=== PATIENT | female | born 1950 | race Caucasian/White ===

== ENCOUNTER 2017-05-13 05:43 | Day surgery (SDC) | payer OTHER ==
[~2017-05-13 05:43] MED LIST: HYOSCYAMINE0.125 M1 SL; PERCOCET 5/3251 TAB PO; SYNTHROID50 MCG; Synthroid PO; ULTRACET PO
== END 2017-05-13 12:00 | disposition home or self-care (01) ==
LOC: AMB-ENDOS 05:43
DX: K62.4 Stenosis of anus and rectum (principal); K64.1 Second degree hemorrhoids

== ENCOUNTER 2019-09-23 22:24 | Emergency (ER) | payer OTHER ==
[~2019-09-23] VITALS: Ht 149.9 cm; Wt 72.6 kg
[2019-09-23] MEDS ORDERED: LEVOTHYROXINE25 MCG (22:50)
[2019-09-23] MEDS ORDERED: COZAAR50 MG (22:51)
== END 2019-09-24 18:27 | disposition home or self-care (01) ==
LOC: ER 22:24
DX: K57.30 Diverticulosis of large intestine without perforation or abscess without bleeding (principal); R10.32 Left lower quadrant pain

== ENCOUNTER → 2019-10-26 08:00 | Outpatient (CLI) | payer OTHER ==
[~2019-10-26 08:00] MED LIST changes: +COZAAR50 MG; +LEVOTHYROXINE25 MCG
== END | disposition home or self-care (01) ==
LOC: LAB 08:00 → ADM 13:00 → EDSTATUS 11-02 13:00 → AMB-ENDOS 11-02 13:00
PROVIDERS: ATTEND Colon & Rectal Surgery
DX: K57.30 Diverticulosis of large intestine without perforation or abscess without bleeding (principal); Z20.828 Contact with and (suspected) exposure to other viral communicable diseases; K62.4 Stenosis of anus and rectum; K92.1 Melena

== ENCOUNTER 2019-12-28 11:11 | Day surgery (SDC) | payer OTHER | END 2019-12-28 14:50 | disposition home or self-care (01) | LOC: AMB-ENDOS 11:11 | PROVIDERS: ATTEND Colon & Rectal Surgery | DX: K62.4 Stenosis of anus and rectum (principal); K64.1 Second degree hemorrhoids; Z20.828 Contact with and (suspected) exposure to other viral communicable diseases ==

== ENCOUNTER 2022-03-10 03:55 | Emergency (ER) | payer OTHER ==
[~2022-03-10] VITALS: Ht 152.4 cm; Wt 72.6 kg
== END 2022-03-10 12:22 | disposition home or self-care (01) ==
LOC: ER 03:55
DX: K57.30 Diverticulosis of large intestine without perforation or abscess without bleeding (principal); K63.89 Other specified diseases of intestine; K76.89 Other specified diseases of liver

== ENCOUNTER 2022-03-10 19:17 | Inpatient (IN) | payer OTHER ==
[~2022-03-10] VITALS: Ht 165.1 cm; Wt 72.6 kg
--- NOTE | 2022-03-10 19:49 | NUR ---
SE RECIBE PACIENTE ALERTA Y ORIENTADA X3 QUIEN REFIERE QUE FUE ATENDIDA POR ER EN EL SUNDAY DE HOY POR DOLOR ABD Y VOMITOS, INDICA QUE LUEGO QUE FUE HAYLEY DE ALESSANDRA AUN CONTINUA CON EL DOLOR Y LOS VOMITOS (2 ANTES DE LLEGAR) SE MONITOREAN S/V Y SE UBICA PACIENTE
--- NOTE | 2022-03-10 21:20 | NUR ---
PTE ALERTA Y ORIENTADA X3. SE REALIZAN MUESTRAS DE [facility] Y BAJO MEDIDAS ASEPTICAS. SE CANALIZA USANDO ANGIO 18 EN [place], [place] Y ENROJECIMIENTO. SE ADMINISTRA MEDICAMENTO [facility].
== END 2022-03-14 16:12 | disposition home or self-care (01) | DRG 390 ==
LOC: ER 19:17 → SEC-K 21:20 → SURG 21:20 → SURH 03-11 02:36 → SURG 03-11 02:39
PROVIDERS: ADMIT Colon & Rectal Surgery; ATTEND Colon & Rectal Surgery
DX: K56.600 Partial intestinal obstruction, unspecified as to cause (principal); I10 Essential (primary) hypertension; Z20.822 Contact with and (suspected) exposure to COVID-19

== ENCOUNTER 2022-03-25 18:36 | Inpatient (IN) | payer OTHER ==
[~2022-03-25] VITALS: Ht 152.4 cm; Wt 73.0 kg
--- NOTE | 2022-03-25 19:07 | NUR ---
PACIENTE FEMINA DE 71 ANOS ALERTA Y ORIENTADA X 3 ACOMPANADA POR HECTOR REFIERE DOLOR PELVICO DESDE HOY.
--- NOTE | 2022-03-25 20:01 | NUR ---
FEMINA ALERTA Y ORIENTADA X3 EVALUADA POR DR BETTY [facility] [place] [facility]. SE EDUCA A PTE Y REFIERE ENTENDER. SE COLECTAN MUESTRAS DE DANN BAJO MEDIDAS ASEPTICAS Y SE ADMINISTRAN MEDICAMENTOS [facility].
== END 2022-03-27 14:19 | disposition home or self-care (01) | DRG 392 ==
LOC: ER 18:36 → SEC-K 03-26 00:02 → SURG 03-26 00:02
PROVIDERS: ADMIT Colon & Rectal Surgery; ATTEND Colon & Rectal Surgery
PROC: BW21ZZZ Computerized Tomography (CT Scan) of Abdomen and Pelvis (ICD-10-PCS; principal; 2022-03-25)
DX: K52.89 Other specified noninfective gastroenteritis and colitis (principal); K91.3 Postprocedural intestinal obstruction; K57.90 Diverticulosis of intestine, part unspecified, without perforation or abscess without bleeding; Z20.822 Contact with and (suspected) exposure to COVID-19

== ENCOUNTER 2022-06-09 19:07 | Inpatient (IN) | payer OTHER ==
[~2022-06-09] VITALS: Ht 152.4 cm; Wt 63.5 kg
[2022-06-14] MEDS ORDERED: ESOMEPRAZOLE MA40 MG (10:24)
[2022-06-14] MEDS ORDERED: FENOFIBRIC ACI135 MG (10:24)
[2022-06-14] MEDS ORDERED: ATORVASTATIN CA20 MG (10:24)
[2022-06-17] MEDS ORDERED: LEVOTHYROXINE25 MCG PO (13:40)
[2022-06-17] MEDS ORDERED: FAMOTIDINE20 MG PO (13:40)
[2022-06-17] MEDS ORDERED: COZAAR25 MG PO (13:40)
[2022-06-17] MEDS ORDERED: POLY119PG PO (13:40)
[2022-06-17] MEDS ORDERED: INTESTINEX680 M1 PO (13:40)
== END 2022-06-17 18:13 | disposition home or self-care (01) | DRG 394 ==
LOC: ER 19:07 → SURG 06-10 15:05
PROVIDERS: ADMIT Internal Medicine Geriatric Medicine; ATTEND Internal Medicine Geriatric Medicine
PROC: BW21ZZZ Computerized Tomography (CT Scan) of Abdomen and Pelvis (ICD-10-PCS; 2022-06-09)
PROC: 02HV33Z Insertion of Infusion Device into Superior Vena Cava, Percutaneous Approach (ICD-10-PCS; 2022-06-11)
PROC: 3E0436Z Introduction of Nutritional Substance into Central Vein, Percutaneous Approach (ICD-10-PCS; 2022-06-11)
PROC: BW40ZZZ Ultrasonography of Abdomen (ICD-10-PCS; 2022-06-15)
PROC: 0D7E8ZZ Dilation of Large Intestine, Via Natural or Artificial Opening Endoscopic (ICD-10-PCS; principal; 2022-06-16)
DX: K91.89 Other postprocedural complications and disorders of digestive system (principal); K56.600 Partial intestinal obstruction, unspecified as to cause; K52.9 Noninfective gastroenteritis and colitis, unspecified; K57.30 Diverticulosis of large intestine without perforation or abscess without bleeding; K76.0 Fatty (change of) liver, not elsewhere classified; K76.89 Other specified diseases of liver; I10 Essential (primary) hypertension; E03.9 Hypothyroidism, unspecified; K64.1 Second degree hemorrhoids; Z20.822 Contact with and (suspected) exposure to COVID-19

== ENCOUNTER 2023-01-04 05:24 | Day surgery (SDC) | payer OTHER ==
[~2023-01-04 05:24] MED LIST changes: +ATORVASTATIN CA20 MG; +COZAAR25 MG PO; +ESOMEPRAZOLE MA40 MG; +FAMOTIDINE20 MG PO; +FENOFIBRIC ACI135 MG; +INTESTINEX680 M1 PO; +LEVOTHYROXINE25 MCG PO; +POLY119PG PO
== END 2023-01-04 13:30 | disposition home or self-care (01) ==
LOC: AMB-ENDOS 05:24
PROVIDERS: ATTEND Colon & Rectal Surgery
DX: K62.4 Stenosis of anus and rectum (principal); K92.1 Melena; K57.30 Diverticulosis of large intestine without perforation or abscess without bleeding; Z20.822 Contact with and (suspected) exposure to COVID-19; I10 Essential (primary) hypertension; K56.0 Paralytic ileus; E03.9 Hypothyroidism, unspecified

== ENCOUNTER 2023-10-05 05:32 | Day surgery (SDC) | payer OTHER ==
[2023-10-05] MEDS ORDERED: fentaNYL CITRATE 50 MCG/ML AMPUL IV PUSH ONE (09:00)
[2023-10-05] MEDS ORDERED: MIDAZOLAM HCL 2 MG/2 ML VIAL IV ONE (09:00)
[2023-10-05] MEDS ORDERED: DIPHENHYDRAMINE HCL 50 MG/ML VIAL 1ML IV ONE (09:00)
== END 2023-10-05 10:10 | disposition home or self-care (01) ==
LOC: AMB-ENDOS 05:32
PROVIDERS: ATTEND Colon & Rectal Surgery
DX: K57.32 Diverticulitis of large intestine without perforation or abscess without bleeding (principal); K62.4 Stenosis of anus and rectum